=== PATIENT | male | born 1940 | race Caucasian/White ===

== ENCOUNTER 2024-02-07 20:40 | Emergency (ER) | payer MEDICARE, SELFPAY ==
[2024-02-07 20:59] VITALS: BP 166/72
[2024-02-07 21:46] LABS: ALT (SGPT) 31 U/L (0-50); AST (SGOT) 32 U/L (17-59); Albumin 4.7 g/dl (3.5-5.0); Alkaline Phosphatase 104 U/L (38-126); Blood Urea Nitrogen 31 mg/dl (9-20); Calcium 10.1 mg/dl (8.4-10.2); Carbon Dioxide 28 mmol/L (22-30); Chloride 104 mmol/L (98-107); Glucose 170 mg/dl (70-99); Potassium 4.9 mmol/L (3.5-5.1); Sodium 140 mmol/L (135-145); Total Bilirubin 0.4 mg/dl (0.2-1.3); Total Protein 7.6 g/dl (6.3-8.2); eGFR > 60.00
[2024-02-07 21:47] LABS: % Eosinophils 2.5 % (0-6); % Immature Granulocytes 0.3 % (0-0.5); % Lymphocytes 27.2 % (20.5-51.1); % Monocytes 10.8 % (1.7-9.3); % Neutrophils 58.2 % (42.2-75.2); Absolute Basophils 0.1 10^3/uL (0-0.2); Absolute Eosinophils 0.2 10^3/uL (0-0.7); Absolute Monocytes 0.8 10^3/uL (0.1-0.6); Absolute Neutrophils 4.3 10^3/uL (1.4-6.5); Hemoglobin 15.9 g/dL (13.0-18.0); Mean Corp Hgb Conc. 33.1 g/dL (33.0-37.0); Mean Corpuscular Hgb 28.9 pg (27.0-31.0); Mean Corpuscular Volume 87.1 fL (80.0-94.0); Mean Platelet Volume 8.7 fL (7.4-10.4); Nucleated Red Blood Cells % 0 % (-); Platelet Count 192 10^3/uL (130-400); Red Blood Cell Count 5.51 10^6/uL (4.70-6.10); Red Cell Dist. Width 15.4 % (11.5-14.5); White Blood Cell Count 7.3 10^3/uL (4.8-10.8)
[2024-02-07 21:58] LABS: Troponin I 0.014 ng/ml
[2024-02-07 22:10] LABS: Urine Albumin 1+ (Neg - Trace); Urine Bilirubin Negative (Negative); Urine Character Clear (Clear); Urine Color Yellow; Urine Glucose 3+ (Negative); Urine Ketone Trace (Negative); Urine Leukocyte Negative (Negative); Urine Nitrite Negative (Negative); Urine Occult Blood Negative (Negative); Urine Urobilinogen Negative (Neg - 1+)
[2024-02-07 22:15] VITALS: BMI 27.9
[2024-02-07 22:18] VITALS: BP 154/75
[2024-02-07 22:19] LABS: Urine Squamous Cell 0-2 /LPF (Few)
[2024-02-07 22:20] LABS: Urine Bacteria Few (Negative); Urine Red Blood Cell 0-2 /HPF (0-2); Urine White Cell 0-2 /HPF (0-5)
--- NOTE | 2024-02-07 22:58 | ED.GENMED ---
History of Present Illness
General
Chief Complaint: Cardiac Symptoms
Source: patient
Exam Limitations: none
Time Seen by Provider: 02/07/24 22:49
History of Present Illness
History of Present Illness:
See MDM
Past History
Past History
ED Past Medical History: HTN, Hypercholesterolemia, NIDDM and Other (History of prostatitis)
ED Past Surgical History: Cardiac (History of bypass surgery in 1998) and Other (History of benign brain tumor surgery in 1995)
Social History
Tobacco: Non-smoker
Personal:
Living: with family
Phy Exam
Physical Exam
Physical Exam:
See MDM
Course
Orders/Labs/Results
Orders:
Orders
02/07/24 21:04
Electrocardiogram (*1) Urgent
Reason for Study: Vertigo / Dizzy
EKG- Treatment ONCE
02/07/24 21:23
CMP [Comprehensive Metabolic Panel] Urgent
Complete Blood Count/With Diff Urgent
Troponin I Urgent
02/07/24 21:59
Urinalysis Reflex To Culture Urgent
Date Specimen was Collected: 02/07/24
Time Specimen was Collected: 21:39
Urine Microscopic Reflex Cult Urgent
Abnormal Lab Results
02/07/24 02/07/24
21:23 21:59
RDW 15.4 H %
(11.5-14.5)
Absolute Monos (auto) 0.8 H 10^3/uL
(0.1-0.6)
Monocytes % 10.8 H %
(1.7-9.3)
BUN 31 H mg/dl
(9-20)
Glucose 170 H mg/dl
(70-99)
Urine Ketones Trace A
(Negative)
Urine Bacteria (Reflex) Few A
(Negative)
Urine Glucose 3+ A
(Negative)
Urine Albumin (Reflex) 1+ A
(Neg - Trace)
02/07/24 21:23
02/07/24 21:23
Vital Signs
Initial and Last Documented VS:
Initial Vital Signs
Temp Pulse Resp BP Pulse Ox
97.6 F 66 22 166/72 96
02/07/24 20:59 02/07/24 20:59 02/07/24 20:59 02/07/24 20:59 02/07/24 20:59
Last Documented Vital Signs
Temp Pulse Resp BP Pulse Ox
97.6 F 66 22 154/75 97
02/07/24 20:59 02/07/24 20:59 02/07/24 20:59 02/07/24 22:18 02/07/24 22:18
MDM/Problems Addressed
Differential Diagnosis Includes:
HPI and MDM Narrative:
83-year-old male presenting with an episode of dizziness. This occurred at his 's viewing. His recently a few days ago. After realizing that he did not use his nitroglycerin patch this morning, he placed it on and 8 PM and all
symptoms have resolved. On my evaluation, patient has already received EKG and blood work. He denies any chest pain or shortness of breath. Patient is asking to go home
Physical exam
General: Well appearing and non-toxic
HEENT: protecting airway
Neck: appears supple
CV: No evidence of cyanosis. Regular rate and rhythm
Resp: No accessory muscle use. Lungs clear
Abd: Non-distended
Extremities: No deformities
Neuro: alert. Normal finger-nose bilaterally
Psych: Normal affect
Skin: Intact
Problems Addressed including Acute and Chronic Conditions affecting care:
1. Resolved dizziness
Acuity: acute
Prognosis: stable
Details: Likely in the setting of his current stressful situation, not eating or drinking over the past few days and forgetting his nitroglycerin patch this morning. All symptoms have resolved and his workup is currently not
Updates
His EKG is unchanged from prior. Troponin negative. Patient has remained symptom-free in the emergency department and is pleading to go home. I had a long discussion with patient and family. We talked about his nitroglycerin patch. Since he
placed it on later this evening, he is going to take it off as soon as he goes to bed and take an extra lisinopril to help with blood pressure control. Discussed taking his lisinopril tablet tomorrow during the afternoon instead of morning and he
will place his nitroglycerin patch at his normal time.
Differential Diagnosis (but not limited to): Takotsubo, medication noncompliance, near syncope
Testing considered: Repeat troponin but patient is pleading to go home
Drug therapy (if applicable): OTC meds, please see d/c instruction regarding Rx drugs
Amount and/or Complexity of Data Reviewed
Clinical info obtained from: Patient
External data reviewed: N/A
Labs I independently reviewed (but not limited to): Troponin normal
Radiology: N/A
Pulse Ox: not hypoxic
EKG independently reviewed: Sinus rhythm, normal axis, right bundle block, no STEMI
Software Developer Mid Level: Sinus rhythm
Critical Care: N/A
Risk of Complication:
Social Determinants of health: Good social support
Discussed with other providers: N/A
Escalation of Care includes Admit/Obs: After being observed in the Emergency Department, pt stable for discharge.
Occasional wrong word or 'sound a like' substitutions may have occurred due to the inherent limitations of voice recognition software. Read the chart carefully and recognize, using context, where substitutions have occurred.
*Critical Care Note
Total Time (30-74mins, 75-104mins- exclusive of procedures): Not Applicable
ED Attending Note
-
Portions of this chart may have been created with voice recognition software.� Occasional wrong word or��sound alike� substitutions may have occurred due to the inherent limitations of voice recognition software.
Discharge Plan
Departure
Patient Disposition: Home (Routine Discharge)
Date of Disposition: 02/07/24
Time of Disposition: 22:59
Patient with high blood pressure during this ER visit?: Yes
Discharge Problem:
Dizziness
Instructions: BLOOD PRESSURE
Prescriptions:
No Action
multivitamin [Daily Multi-Vitamin] 1 EACH tablet
1 ea PO DAILY
ascorbic acid (vitamin C) [Vitamin C] 500 MG tablet
500 mg PO DAILY
aspirin 81 MG tablet,chewable
81 mg PO DAILY
ciprofloxacin (mixture) 500 MG tablet, ER multiphase 24 hr
500 mg PO DAILY
cholecalciferol (vitamin D3) [Vitamin D3] 1,000 UNIT tablet
3,000 unit PO DAILY
FOLic ACID
PO DAILY
Phenobarbital
64.8 mg PO DAILY
metformin 500 MG tablet
500 mg PO BID
sennosides [senna] 1 TABLET tablet
2 tab PO HS
carvedilol 3.125 MG tablet
3.125 mg PO BID
calcium carbonate [Calcium 600] 600 MG tablet
1,200 mg PO
nitroglycerin 0.4 MG patch 24 hour
1 ea TD
ramipril 2.5 MG capsule
2.5 mg PO DAILY
nitroglycerin 0.4 MG tablet, sublingual
0.4 mg sublingual [id number] PRN (Reason: chest pain)
pyridoxine (vitamin B6) 50 MG tablet
100 mg PO DAILY
hydrochlorothiazide 25 MG tablet
25 mg PO DAILY
rosuvastatin 20 MG tablet
20 mg PO QPM
fenofibrate 160 MG tablet
160 mg PO DAILY
Lactobacillus acidophilus [Probiotic] 1 EACH capsule
1 ea PO DAILY
Referrals:
Rodger Singleton MD [Family Provider] -
Activity Restrictions/Additional Instructions:
As we discussed, your symptoms are likely related to not using your Nitropatch this morning. Since you put it on this evening, I would take it off when you go to bed, take an extra lisinopril and restart your regimen tomorrow morning. Tomorrow,
you can space out your morning lisinopril until the afternoon.
Please return for any worsening symptoms.
You may return at any time if you have further concerns.
Please follow up with your doctor at the first available appointment, preferably this week.
Interventions
Interventions:
*Risk Screen - Suicide Last Done: 02/07/24 20:59
*General Assessment Last Done: 02/07/24 22:15
*Neglect/Abuse Screening Last Done: 02/07/24 20:59
ED- Fall Risk Assessment Last Done: 02/07/24 22:15
*ED COVID-19 Vaccine History Last Done: 02/07/24 22:05
ED- Pulmonary Assessment Last Done: 02/07/24 22:15
ED- Neurological Assessment Last Done: 02/07/24 22:15
ED- Cardiac Assessment Last Done: 02/07/24 22:15
ED Swallowing Screen Last Done: 02/07/24 22:22
Discharge Date and Time
Print Language: HEBREW
== END 2024-02-07 23:05 | disposition home or self-care (01) ==
LOC: EMR 20:40
PROVIDERS: Emergency Medicine; EMERGENCY PHYSICIAN Student in an Organized Health Care Education/Training Program; FAMILY PHYSICIAN Internal Medicine
DX: R42 Dizziness and giddiness (principal); I10 Essential (primary) hypertension; E78.00 Pure hypercholesterolemia, unspecified; E11.9 Type 2 diabetes mellitus without complications; N41.9 Inflammatory disease of prostate, unspecified; Z86.011 Personal history of benign neoplasm of the brain
CPT/HCPCS: 99283; 80053; 81003; 81015; 84484; 85025; 93005

== ENCOUNTER → 2024-04-12 10:21 | Outpatient (REF) | payer MEDICARE, SELFPAY ==
[2024-04-12 13:19] LABS: LDL Cholesterol, Direct 43 mg/dl
== END ==
LOC: REG 10:21
PROVIDERS: ATTENDING PHYSICIAN Internal Medicine Cardiovascular Disease; FAMILY PHYSICIAN Internal Medicine
DX: E78.5 Hyperlipidemia, unspecified (principal)
CPT/HCPCS: 36415; 83721

== ENCOUNTER → 2025-05-03 10:28 | Outpatient (REF) | payer MEDICARE, SELFPAY | LOC: RCS 10:28 | PROVIDERS: ATTENDING PHYSICIAN Internal Medicine Cardiovascular Disease; FAMILY PHYSICIAN Internal Medicine | DX: I45.10 Unspecified right bundle-branch block (principal) | CPT/HCPCS: 93306 ==